=== PATIENT | male | born 1990 | race Caucasian/White ===

== ENCOUNTER 2024-04-01 17:22 | Emergency (ER) | payer MEDICAID ==
[~2024-04-01] VITALS: Ht 185.4 cm; Wt 99.8 kg
[2024-04-01 17:38] VITALS: BP_SYST 145; PULSE 101; RESP 24; TEMP 98.8; O2SAT 96
[2024-04-01 18:03] LABS: BILIRUBIN,URINE NEGATIVE (NEGATIVE); BLOOD, URINE 2+ (NEGATIVE); CLARITY/URINE CLEAR (CLEAR); COLOR,URINE YELLOW (YELLOW); GLUCOSE,URINE NEGATIVE (NEGATIVE); KETONES,URINE NEGATIVE (NEGATIVE); LEUKOCYTE ESTERASE ,URINE NEGATIVE (NEGATIVE); NITRITE, URINE NEGATIVE (NEGATIVE); PROTEIN URINE NEGATIVE (NEGATIVE); UROBILINOGEN,URINE 0.2 (0.2-1.0)
[2024-04-01 18:09] LABS: BASOPHILS % (AUTO) 0.4 % (0.0-2.0); EOSINOPHILS # (AUTO) 0.2 K/uL (0.0-0.4); EOSINOPHILS % (AUTO) 2.7 % (0.0-4.0); HEMATOCRIT 43.1 % (36-54); HEMOGLOBIN 15.1 g/dL (14.0-18.0); LYMPHOCYTES # (AUTO) 2.5 K/uL (1.0-5.5); LYMPHOCYTES % (AUTO) 31.8 % (20.5-51.5); MEAN CORPUSCULAR HEMOGLOBIN 33 pg (27-31); MEAN CORPUSCULAR HGB CONC 35 % (32-36); MEAN CORPUSCULAR VOLUME 93 fL (79.0-98.0); MONOCYTES # (AUTO) 0.8 K/uL (0.0-1.0); MONOCYTES % (AUTO) 10.6 % (1.7-9.3); NEUTROPHILS # (AUTO) 4.3 K/uL (1.8-7.7); NEUTROPHILS % (AUTO) 54.5 % (40.0-70.0); PLATELET COUNT (AUTO) 267 K/uL (130-430); RED BLOOD CELL COUNT(AUTO) 4.62 MIL/uL (4.2-6.2); RED CELL DISTRIBUTION WIDTH 13.8 % (9.0-15.0)
[2024-04-01] MEDS: NACL 0.9% 1,000 ML IV ONE (18:11)
[2024-04-01 18:19] LABS: BARBITURATE, URINE NEGATIVE (NEG <=200); BENZODIAZEPINE, URINE NEGATIVE (NEG <=150); CANNABINOID, URINE POSITIVE (NEG <=50); COCAINE, URINE NEGATIVE (NEG <=150); METHAMPHETAMINES SCREEN,URINE POSITIVE (NEG <=500); OPIATE, URINE NEGATIVE (NEG <=100); PHENCYCLIDINE SCREEN,URINE NEGATIVE (NEG <=25); UR TRICYCLIC ANTIDEPRESSANTS NEGATIVE (NEG <=300); URINE AMPHETAMINE POSITIVE (NEG <=500); URINE METHADONE NEGATIVE (NEG <=200); URINE OXYCODONE SCREEN NEGATIVE (NEG <=100)
[2024-04-01 18:29] LABS: BACTERIA,URINE RARE /HPF (None Seen); WBC,URINE 0-3 /HPF (0-3)
[2024-04-01 18:35] LABS: ABG O2 SAT% ESTIMATE 99.1 % (94.0-100.0); BLOOD GAS BASE EXCESS 2.5 mmol/L (-3.0-3.0)
[2024-04-01] MEDS: LORazepam 2 MG/ML VIAL IVP ONE (18:36)
[2024-04-01 18:39] LABS: BLOOD GAS PCO2 19.8 mmHg (32.0-45.0); BLOOD GAS PH 7.641 (7.350-7.450)
[2024-04-01 18:40] LABS: BLOOD GAS HCO3 20.9 mmol/L (21.0-27.0); BLOOD GAS PO2 124.1 mmHg (75.0-100.0)
[2024-04-01 18:51] LABS: ALANINE AMINOTRANSFERASE 113 U/L (12-78); ALBUMIN 3.7 g/dL (3.4-4.8); ALCOHOL, BLOOD 239 mg/dL (<10); ANION GAP 18 (5-15); ASPARTATE AMINOTRANSFERASE 560 U/L (10-37); BILIRUBIN,DIRECT 0.3 mg/dL (0.0-0.3); CALCIUM 8.7 mg/dL (8.4-11.0); CARBON DIOXIDE 21 mmol/L (23-29); CHLORIDE 100 mmol/L (98-107); CREATININE 1.09 mg/dL (0.55-1.30); GFR AFRICAN AMERICAN 99 mL/min (>90); GLUCOSE 100 mg/dL (74-106); POTASSIUM 3.4 mmol/L (3.5-5.1); SALICYLATE 3 mg/dL (3-30); SODIUM SERUM 139 mmol/L (136-145); TOTAL BILIRUBIN 0.9 mg/dL (0.0-1.0); TOTAL PROTEIN, SERUM 8.4 g/dL (6.4-8.3); UREA NITROGEN, BLOOD 10 mg/dL (8-21)
[2024-04-01 19:16] LABS: ACETAMINOPHEN < 1 ug/mL (1-30); GFR NON AFRICAN-AMERICAN 82 mL/min (>90)
[2024-04-01] MEDS: ALBUTEROL SULFATE 0.083% 2.5 MG/3 ML VIAL.NEB INH ONE (20:01)
[2024-04-01] MEDS: IPRATROPIUM BROM 0.5 MG/2.5 ML VIAL.NEB (ATROVENT) INH ONE (20:02)
[2024-04-02 02:08] VITALS: PULSE 109; TEMP 97.7
[2024-04-02 03:15] VITALS: BP_SYST 152; RESP 20; O2SAT 99
== END 2024-04-02 03:17 | disposition home or self-care (01) ==
LOC: SED 17:22
DX: R06.4 Hyperventilation (principal); F41.0 Panic disorder [episodic paroxysmal anxiety]; F15.20 Other stimulant dependence, uncomplicated; F10.129 Alcohol abuse with intoxication, unspecified; R51.9 Headache, unspecified; Y90.6 Blood alcohol level of 120-199 mg/100 ml
CPT/HCPCS: 99285; 96374; 70450; 71045; 96361; 80307; 80076; 80048; 83880; 85025; 84484; 36415; 94640; 36600; 82803; 82948; 81001; 81000; 81015; G0482; J2060; J7030; G0480; G0481